=== PATIENT | female | born 1980 | race Caucasian/White ===

== ENCOUNTER 2025-08-09 10:37 | Emergency (ER) | payer SELFPAY ==
[2025-08-09 10:48] VITALS: BP 138/93
[2025-08-09 10:55] VITALS: BMI 36.5
--- NOTE | 2025-08-09 10:57 | ED.GENMED ---
History of Present Illness
General
Chief Complaint: Foreign Body Ingestion
Source: patient
Exam Limitations: none
Time Seen by Provider: 08/09/25 10:53
History of Present Illness
History of Present Illness:
See MDM
Past History
Past History
ED Past Medical History: None
ED Past Surgical History: None
Social History
Tobacco: Non-smoker
Phy Exam
Physical Exam
Physical Exam:
See MDM
Course
Orders/Labs/Results
Orders:
Orders
08/09/25 10:56
CR Abdomen - 1 View Urgent
Comment:
Reason For Exam: possible foreign body ingetion
CR Chest - 2 Views Urgent
Comment:
Reason For Exam: possible foreing body ingestion
Vital Signs
Initial and Last Documented VS:
Initial Vital Signs
Temp Pulse Resp BP Pulse Ox
98.1 F 98 18 138/93 96
08/09/25 10:48 08/09/25 10:48 08/09/25 10:48 08/09/25 10:48 08/09/25 10:48
Last Documented Vital Signs
Temp Pulse Resp BP Pulse Ox
98.1 F 98 18 138/93 96
08/09/25 10:48 08/09/25 10:48 08/09/25 10:48 08/09/25 10:48 08/09/25 11:01
MDM/Problems Addressed
Differential Diagnosis Includes:
Note:
CHIEF COMPLAINT(S)
Suspicious round object observed on an x-ray from a snf facility.
HISTORY OF PRESENT ILLNESS
The patient is a 45-year-old female, presented from a snf facility after a round object was observed on an x-ray, which appeared suspicious for possible contraband ingestion. The patient has been incarcerated since April of this year and denies
ingesting any foreign objects or contraband. There have been no recent indications of improper behavior or ingestion of illicit substances since she has been in custody, per pt. The [facility] reported a large round object that they were
unable to identify, prompting her referral to the hospital for further evaluation. Police at bedside stating that patient was initially in [facility] and was being transferred to [facility]. As part of the intake, she received an
x-ray. Due to the abnormal gas bubble seen in the stomach, she was sent into the emergency department to rule out any evidence of foreign body ingestion. Patient denies any foreign body ingestion and denies any complaints
PHYSICAL EXAM
General: Alert, no acute distress.
Skin: Warm, dry.
Head: Normocephalic, atraumatic
Neck: Appears supple, trachea midline.
Eyes, Ears, Nose, Mouth, and Throat: Moist mucous membranes
Cardiovascular: No signs of cyanosis
Respiratory: Respirations are non-labored.
Abdomen: Non-distended. Soft and nontender
Musculoskeletal: No deformities
Neurological: No focal neurological deficit observed.
Psychiatric: Cooperative, appropriate mood and affect.
PLAN
Proceed with an abdominal x-ray to further evaluate and clarify the nature of the observed round object.
DIFFERENTIAL DIAGNOSIS
- Ingested foreign body
- Fecal matter
- Large gas bubble
- Abdominal mass
- Bezoar
- Small bowel obstruction
- Constipation
- Colonic volvulus
- Ascites with loculated fluid
- Diverticular disease
SUMMARY OF ENCOUNTER
The patient was sent from a snf facility for the evaluation of a suspicious object identified via x-ray. The initial physical examination did not indicate any acute distress or tenderness that would suggest an emergent condition. An abdominal x-ray
was ordered to determine the nature of the object, suspecting it may be a large gas bubble or other non-threatening formation.
MEDICATION RECONCILIATION
No medications were administered or prescribed during this encounter.
MEDICAL DECISION MAKING
-Complexity of Data Reviewed: Chronic conditions affecting care were not discussed in this encounter.
-Data:
Category 1: My independent interpretation of radiology study is pending the abdominal x-ray results.
Category 3: No discussion of management with other healthcare providers was mentioned.
SUMMARY OF ENCOUNTER
The patient, a 45-year-old female from a snf facility, was evaluated for a possible ingested foreign body. A round object observed on a previous x-ray raised suspicion of contraband ingestion. However, after my independent interpretation of the
current abdominal x-ray, no abnormalities indicating secondary findings of foreign body ingestion were present. The patients physical examination showed no signs of acute distress or abdominal pain. Based on these findings, the likelihood of
contraband ingestion is low but not impossible.
DISPOSITION
Transfer back to the intermediate facility.
PLAN
The plan was to continue monitoring the patient for any changes in condition and transfer her back to the snf facility given the stable findings and lack of acute symptoms.
INDEPENDENT REVIEW OF LABS AND INTERPRETATION OF TESTS
- My independent interpretation of the abdominal x-ray shows no evidence of abnormality or secondary findings indicative of foreign body ingestion.
MEDICAL DECISION MAKING
-Complexity of Data Reviewed: The evaluation included the differential diagnosis of ingested foreign body, fecal matter, large gas bubble, abdominal mass, bezoar, small bowel obstruction, constipation, colonic volvulus, ascites with loculated fluid,
and diverticular disease.
-Data:
Category 1: My independent interpretation of the abdominal x-ray confirmed no abnormalities.
-Risk: Consideration of Admission/Observation: Escalation of care including admission/observation was considered given the complexity and risk of the patients presenting complaint. However, ultimately, I feel the patient is safe for outpatient
management with a return to the intermediate facility. Reasoning: The work-up is reassuring and does not reveal any acute life/organ-threatening processes. The patients symptoms are well controlled upon reevaluation, reexamination is reassuring, vitals
are stable, and the patient is agreeable with transfer.
*Pulse Oximetry
SaO2: 96
Oxygen Mode of Delivery: Room air
Patient hypoxic: no
*Critical Care Note
Total Time (30-74mins, 75-104mins- exclusive of procedures): Not Applicable
ED Attending Note
-
Portions of this chart may have been created with voice recognition software.� Occasional wrong word or��sound alike� substitutions may have occurred due to the inherent limitations of voice recognition software.
Discharge Plan
Departure
Patient Disposition: Custodial
Date of Disposition: 08/09/25
Time of Disposition: 12:39
Discharge Problem:
Suspected ingestion of foreign body
Referrals:
NONE,* [Family Provider, Internal Medicine]
Activity Restrictions/Additional Instructions:
The x-rays show no evidence of a radiopaque foreign body.
Mirna Mccracken is medically stable for incarceration.
Interventions
Interventions:
*Risk Screen - Suicide Last Done: 08/09/25 10:58
*General Assessment Last Done: 08/09/25 10:58
*Neglect/Abuse Screening Last Done: 08/09/25 10:58
*ED COVID-19 Vaccine History Last Done: 08/09/25 10:58
*ED Influenza Vaccine History Last Done: 08/09/25 10:58
[facility] Fall Risk Assessment Tool Last Done: 08/09/25 10:55
DQ-[id number]-Uqhymtmghk Assessment Last Done: 08/09/25 10:55
ED- Pulmonary Assessment Last Done: 08/09/25 10:55
ED-EENT Assessment Last Done: 08/09/25 10:55
Discharge Date and Time
Print Language: [id number]
== END 2025-08-09 12:43 ==
LOC: EMR 10:37
PROVIDERS: EMERGENCY PHYSICIAN Student in an Organized Health Care Education/Training Program
DX: Z03.821 Encounter for observation for suspected ingested foreign body ruled out (principal)
CPT/HCPCS: 99283; 71046; 74018